=== PATIENT | male | born 1960 | race Caucasian/White ===

== ENCOUNTER 2017-03-29 08:02 | Emergency (ER) | payer MEDICAID ==
--- NOTE | 2017-03-29 08:16 | CPEKG ---
Heart Rate: 104 RR Interval: 577 P-R Interval: 140 QRSD Interval: 106 QT Interval: 352 QTC Interval: 463 P [place]: 50 QRS [place]: 12 T Wave [place]: -24 EKG Severity - ABNORMAL ECG - EKG Impression: SINUS TACHYCARDIA EKG Impression: MULTIFORM VENTRICULAR PREMATURE COMPLEXES Electronically Signed By: Evan Polk 29-Mar-2017 11:36:42
[2017-03-29] MEDS ORDERED: NS 1,000 ML IV ONE (08:21)
--- NOTE | 2017-03-29 08:28 | EDPHY ---
H & P Stated Complaint: Presyncope Time Seen by Provider: 03/29/17 08:13 HPI/ROS: CHIEF COMPLAINT: Presyncope HISTORY OF PRESENT ILLNESS: The patient presents to the ED for any acute exacerbation of chronic presyncope. The patient reportedly has been experiencing these symptoms since January. The patient had been hospitalized at [facility] where he was observed for 24 hours without evidence of arrhythmia. The patient reports workup today has included unremarkable laboratory testing, a-2 day Holter monitor, an unremarkable echocardiogram and a brain MRI which demonstrates no evidence of acute neurologic disease. The patient reportedly is scheduled to undergo additional testing including a tilt- table test and reported evaluation of his adrenal gland. Today the patient developed a more protracted bout of presyncope. The patient reportedly developed bilateral upper extremity paresthesias, shakiness, diaphoresis and general body weakness. The patient denies history of alcohol use. REVIEW OF SYSTEMS: A comprehensive 10 point review of systems is otherwise negative aside from elements mentioned in the history of present illness. Source: Patient, Family - Personal History Current Tetanus/Diphtheria Vaccine: Yes - Medical/Surgical History Hx Asthma: No Hx Chronic Respiratory Disease: No Hx Diabetes: No Hx Cardiac Disease: No Hx Renal Disease: No Hx Cirrhosis: No Hx Alcoholism: No Hx HIV/AIDS: No Hx Splenectomy or Spleen Trauma: No Other PMH: pituitary adenoma/vertigo - Social History Smoking Status: Former smoker - Physical Exam Exam: General Appearance: Alert, no distress Eyes: Pupils equal and round no pallor or injection ENT, Mouth: Mucous membranes moist Respiratory: There are no retractions, lungs are clear to auscultation Cardiovascular: Regular rate and rhythm Gastrointestinal: Abdomen is soft and nontender, no masses, bowel sounds normal Neurological: A&O, normal motor function, normal sensory exam, normal cranial nerves Skin: Warm and dry, no rashes Musculoskeletal: Neck is supple nontender Extremities: symmetrical, full range of motion Constitutional: Initial Vital Signs Temperature (C) 36.7 C 03/29/17 08:04 Heart Rate 102 H 03/29/17 08:04 Respiratory Rate 22 H 03/29/17 08:04 Blood Pressure 161/96 H 03/29/17 08:04 O2 Sat (%) 97 03/29/17 08:04 O2 Delivery Mode Room Air Allergies/Adverse Reactions: No Known Allergies Allergy (Verified 03/29/17 08:04) Home Medications: Medication Instructions Recorded Fluoxetine 20 mg 05/27/15 Sulendac 150 mg 05/27/15 Medical Decision Making - Diagnostics EKG Interpretation: EKG: Complete interpretation has been separately recorded in the [facility] archive. Summary impression: Sinus tachycardia, rate 104, nonspecific ST T wave changes noted Imaging Results: Imaging Impressions Head CTA 03/29/17 09:05 Impression: 1. No acute vascular findings. 2. Degenerative change in the cervical spine. 3. 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 4. Additional findings as above. Stenoses are calculated using [place] Symptomatic Carotid Endarterectomy Trial (NASCET) criteria. Findings discussed with Evan oPlk on March 29, 2017 at 10:47 a.m. Neck CTA 03/29/17 09:05 Impression: 1. No acute vascular findings. 2. Degenerative change in the cervical spine. 3. 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 4. Additional findings as above. Stenoses are calculated using [place] Symptomatic Carotid Endarterectomy Trial (NASCET) criteria. Findings discussed with Evan Polk on March 29, 2017 at 10:47 a.m. ED Course/Re-evaluation: I reviewed the patient's past medical records. I reviewed the results of his pituitary MRI from February. I reviewed the results of his endocrinology consult at the [facility]. The patient has had an unremarkable echocardiogram performed at [facility] according to his . The patient has struggled with intermittent symptoms of presyncope, generalized malaise and balance issues for the past month and a half. In the emergency department, the patient is noted to be neurologically intact. In the ED I expanded the differential diagnosis of his symptoms of vertigo and gait imbalance with a CT angiogram head neck which were negative. The patient' s troponin continues to be normal. The patient continues to have will PVCs noted. The patient has had a nearly 6 week history of intermittent symptoms of presyncope. There has been no obvious arrhythmia noted in the ED aside from PVCs. The patient was monitored here for 3 hours without evidence of a more significant arrhythmia. They plan on following up for more endocrine testing and for consideration of a longer event monitor. I do feel the patient can be discharged home. He is referred to [facility] per their request. Differential Diagnosis: Differential diagnosis considered includes vertebrobasilar insufficiency, vasovagal syncope, arrhythmia, stroke, TIA - Data Points Laboratory Results: 03/29/17 08:30 Troponin I < 0.012 ng/mL ng/mL (0.000-0.034) Medications Given: Discontinued Medications Sodium Chloride (Ns) 1,000 mls @ 0 mls/hr IV EDNOW ONE; Wide Open PRN Reason: Protocol Stop: 03/29/17 08:22 Last Admin: 03/29/17 08:35 Dose: 1,000 mls Departure - Departure Disposition: [facility] Inpatient Acute Clinical Impression: Pre-syncope Condition: Good Instructions: Near Syncope (ED) Additional Instructions: 1. You have been given the contact number of our presiding judge at the hospital for a 2nd opinion. 2. Please return to the ED for markedly worsening symptoms, chest pain, difficulty breathing or other concerns. 3. Your cardiac enzymes are normal and CT angiogram of the head/neck demonstrate no evidence of a dissection or obvious vascular problem. Referrals: Amaya Topete MD [Medical Doctor] - As per Instructions
[2017-03-29] MEDS ORDERED: IOPAMIDOL (ISOVUE 370) 100 ML BTL IV ONE (09:23)
[2017-03-29 11:24] VITALS: BP 123/71; PULSE 96; RESP 18; TEMP 98.4; O2SAT 94
[2017-03-29] MEDS ORDERED: LIDOCAINE 1% 300 MG/30 ML SDV ONE (15:51)
[2017-03-29] MEDS ORDERED: MIDAZOLAM 2 MG/2 ML VIAL ONE ×2 (15:51)
[2017-03-29] MEDS ORDERED: fentaNYL 100 MCG/2 ML INJ ONE (15:51)
[2017-03-29] MEDS ORDERED: IOPAMIDOL (ISOVUE-370) 150 ML BTL IV ONE (15:52)
== END 2017-03-29 11:37 | disposition home or self-care (01) ==
PROC: 3E0337Z Introduction of Electrolytic and Water Balance Substance into Peripheral Vein, Percutaneous Approach (ICD-10-PCS; principal; 2017-03-29)
DX: R55 Syncope and collapse (principal); E86.9 Volume depletion, unspecified; Z87.891 Personal history of nicotine dependence
CPT/HCPCS: J1644; J2250; J3010; Q9967

== ENCOUNTER 2017-03-29 15:42 | Inpatient (IN) | payer MEDICAID ==
[2017-03-29] MEDS ORDERED: FAMOTIDINE 20 MG TAB PO ONE (15:43)
[2017-03-29] MEDS ORDERED: diphenhydrAMINE 25 MG CAP PO ONE ×2 (15:43→15:59)
[2017-03-29] MEDS ORDERED: ASPIRIN EC 325 MG TAB PO ONE ×2 (15:43→16:00)
[2017-03-29] MEDS ORDERED: DIAZEPAM 5 MG TAB PO ONE (15:43)
[2017-03-29] MEDS ORDERED: NS 1,000 ML IV ONE (15:43)
[2017-03-29] MEDS ORDERED: FAMOTIDINE 20 MG TAB ONE (16:00)
[2017-03-29] MEDS ORDERED: DIAZEPAM 5 MG TAB ONE (16:00)
[2017-03-29 16:35] LABS: % IMMATURE GRANULYOCYTES 0.4 % (0.0-1.1); ABSOLUTE IMMATURE GRANULOCYTES 0.04 10^3/uL (0.00-0.10); ADD DIFF? NO; ADD MORPH? NO; ADD SCAN? NO; ATYPICAL LYMPHOCYTE FLAG 10 (0-99); FRAGMENT RBC FLAG 10 (0-99); HEMATOCRIT 44.2 % (40.0-51.0); HEMOGLOBIN 15.5 g/dL (13.7-17.5); LEFT SHIFT FLG 0 (0-99); LIPEMIA HEMOLYSIS FLAG 90 (0-99); MEAN CELL HEMOGLOBIN 30.8 pg (27.9-34.1); MEAN CELL HEMOGLOBIN CONCENTR. 35.1 g/dL (32.4-36.7); MEAN CELL VOLUME 87.9 fL (81.5-99.8); MEAN PLATELET VOLUME 9.7 fL (8.7-11.7); PLATELET CLUMPS FLAG 0 (0-99); PLATELET COUNT 211 10^3/uL (150-400); RED BLOOD CELL COUNT 5.03 10^6/uL (4.40-6.38); RED CELL DISTRIBUTION WIDTH 13.2 % (11.5-15.2)
[2017-03-29 16:43] LABS: INR 1.07 (0.83-1.16); PROTIME(PATIENT) 13.8 SEC (12.0-15.0)
[2017-03-29 16:44] LABS: ANION GAP 14 mEq/L (8-16); CALCIUM 9.7 mg/dL (8.5-10.4); CARBON DIOXIDE 21 mEq/l (22-31); CHLORIDE 107 mEq/L (97-110); CHOLESTEROL 303 mg/dL (140-220); CHOLESTEROL/HDL RATIO 6.31 RATIO (1.00-4.97); CREATININE 0.8 mg/dL (0.7-1.3); GLOMERULAR FILTRATION RATE > 60; GLUCOSE 96 mg/dL (70-100); HIGH DENSITY LIPOPROTEIN 48 mg/dL (40-65); LDL/HDL RATIO 4.98 RATIO (1.00-3.64); LOW DENSITY LIPOPROTEIN 239 mg/dL (80-100); NON-HIGH DENSITY LIPOPROTEIN 255 mg/dL (90-129); POTASSIUM 3.9 mEq/L (3.5-5.2); SODIUM 142 mEq/L (134-144); TRIGLYCERIDE 84 mg/dL (40-150); VERY LOW DENSITY LIPOPROTEINS 16 mg/dL (8-25)
--- NOTE | 2017-03-29 16:51 | PDPROPOC ---
Sedation Plan of Care Sedation Plan of Care: vital signs stable, mental status noted, patient educated of risks, benefits, alternatives, patient can tolerate sedation ASA Classification: ASA 2 Planned drugs: fentanyl, midazolam Mallampati Score: Class 2 Mallampati Reference Image: Patient passed 3-3-2 rule?: Yes
--- NOTE | 2017-03-29 16:51 | PDHPUP ---
History & Physical Update H&P update statement: This history and physical update is based on an assessment of the patient which was completed after admission or registration (within 24 hours), but prior to the surgery/procedure. H&P update: H&P reviewed & patient examined, no change in patient's condition since H&P completed
[2017-03-29] MEDS ORDERED: MIDAZOLAM 2 MG/2 ML VIAL ONE (17:12)
[2017-03-29] MEDS ORDERED: fentaNYL 100 MCG/2 ML INJ ONE (17:15)
[2017-03-29] MEDS ORDERED: ATROPINE SULFATE 1 MG/10 ML SYR IVP PRN (17:40)
[2017-03-29] MEDS ORDERED: ONDANSETRON 4 MG/2 ML VIAL IVP PRN (17:40)
[2017-03-29] MEDS ORDERED: NITROGLYCERIN 0.4 MG BTL SL PRN (17:40)
[2017-03-29] MEDS: SULINDAC 200 MG TAB PO SCH (21:12)
--- NOTE | 2017-03-30 04:22 | CPIP ---
[f rep st] INVASIVE CARDIAC PROCEDURE DATE OF PROCEDURE: 03/29/2017 PROCEDURE: 1. Coronary angiography. 2. Left ventriculography. INDICATION: 1. Syncope. 2. PVCs. ACCESS: Patient was prepped and draped in sterile fashion. 1% lidocaine was used to anesthetize the right inguinal region. A 6-Azeri introducer sheath was placed selectively into the right common fe moral artery via modified Seldinger technique. A 6-Azeri JL 3.5 catheter was advanced to the left m ain coronary artery and images obtained. The left main coronary artery was relatively short and bifu rcated into an LAD and circumflex coronary arteries. The left main coronary artery appeared normal. The left anterior descending coronary artery gave rise to 2 prominent diagonal branches. The left a nterior descending coronary artery had a proximal 20% stenosis present. The remainder of the vessel and its complement of diagonal arteries were normal the circumflex coronary artery is a moderate-size d vessel. The circumflex coronary artery is nondominant. Circumflex coronary artery appeared normal . A 6-Azeri JR4 was advanced to the right coronary artery and images obtained. The right coronary artery was dominant. The right coronary artery appeared normal. LEFT VENTRICULOGRAPHY: A 6-Azeri pigtail catheter was advanced in the left ventricle and images obt ained. Left ventricle is normal size and normal systolic function. Estimated ejection fraction 55%. COMPLICATIONS: None. CONCLUSIONS: 1. Mild coronary artery disease without flow limitation. 2. Normal left ventricular size and systolic function. 3. Plan is for medical management. /[id number]/MODL
[2017-03-30] MEDS: FLUoxetine 20 MG CAP PO SCH (08:58)
[2017-03-30] MEDS: SULINDAC 200 MG TAB PO SCH ×2 (08:59→21:25)
--- NOTE | 2017-03-30 10:06 | ASMTCASEMG ---
Living Arrangements What is your living Answers: With Spouse arrangement? Who do you live with? Type Of Residence What kind of residence do Answers: House you live in? Discharge Plan Comments Coordination Status Comments Notes: Chart reviewed, pt is a 57 y/o man admitted w/ syncope. Pt had a CATH yesterday. Pt will most likely d/c w/ supportive when medically stable. No therapies ordered at this time. CM available for changes. Date Signed: 03/30/2017 10:05 AM Electronically Signed By:ALLISON Beckett
--- NOTE | 2017-03-30 14:03 | SOAPPROG ---
SOR[facility] Progress Note Assessment/Plan: 1. CAD - Pt presented with syncope. Angiogram with mild CAD with out flow limitation. Will start secondary prevention with asa and lipitor. No BB or ENRIKE given symptoms of syncope/pre-syncope and normal BP. 2. Hyperlipidemia - LDL is 239. Will start lipitor 80 mg daily. Pt will likely need repatha as well. FLP and LFTs in 3 months. 3. Syncope - Pt presents with a 1 month history of syncope/pre-syncope. Further work up including holter/telemetry monitoring, echocardiogram, and angiogram are unrevealing. Will consult neurology for possible vertigo. Subjective: Pt with episode of pre-syncope this am. Telemetry monitoring with no significant arrhythmias. BP wnl. No chest pain No orthopnea or PND Objective: Vital Signs Temp Pulse Resp BP Pulse Ox 36.4 C 76 10 L 130/85 H 93 03/30/17 12:00 03/30/17 12:00 03/30/17 12:00 03/30/17 12:00 03/30/17 11:37 Laboratory Results 03/29/17 16:10 03/29/17 16:10 03/29/17 03/30/17 03/31/17 05:59 05:59 05:59 Intake Total 1200 Output Total 450 Balance 750 PT 13.8 SEC (12.0-15.0) 03/29/17 16:10 INR 1.07 (0.83-1.16) 03/29/17 16:10 Physical Exam - Physical Exam General Appearance: alert, mild distress Respiratory: lungs clear Cardiac/Chest: regular rate, rhythm Abdomen: normal bowel sounds, non-tender, soft Extremities: other (No hematoma or echymosis.), No pedal edema Neuro/Psych: alert, oriented x 3 ICD10 Worksheet Patient Problems: Problems Problem Status Onset Syncope Acute - ICD10 Problem Qualifiers (1) Syncope
[2017-03-30] MEDS ORDERED: ACETAMINOPHEN 325 MG TAB PO PRN (14:59)
[2017-03-30] MEDS ORDERED: IOPAMIDOL (ISOVUE 370) 100 ML BTL IV ONE (16:49)
--- NOTE | 2017-03-30 23:47 | GCON ---
[f rep st] CONSULTATION NEUROLOGIC CONSULTATION REFERRING PHYSICIAN: Jaylan Vyas MD CHIEF COMPLAINT: Syncope. BILLING INFORMATION: 70 total minutes floor time today reviewing records, imaging and coordination of care. 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 He was only on generic Prozac and anti- inflammatory medication prior to the beginning of this medical history. The medical history begins around February 19, 2017, when he began feeling lightheaded with a vertiginous feeling, tinnitus, breaking out in a sweat, and paresthesias in all 4 extremities. He lay down on the ground and lifted his legs, which resolved the symptoms, then he went out to dinner. He felt the exact same symptoms as described above, and abruptly had brief syncope for around 5 seconds. He immediately came to and there was no significant postictal confusion. There was no tongue biting. No incontinence. No significant tonic or clonic activity. Since that time, he has had an extensive evaluation both at [facility] and at [facility]. No definitive abnormality has been found. He had a CTA of his head and neck, which showed some normal variants of uncertain clinical significance. Certainly, no significant vascular disease, dissection, or thrombosis. No acute vascular findings. He does have some protrusion of his internal carotid arteries into the sphenoid sinuses, which has been a chronic finding. 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/Neurosurgery. There is some recurrence of the cyst material. He has recently had a repeat MRI and was told by Neurosurgery that it can be observed for the time being and is likely asymptomatic. There are no changes in his medical history prior to the onset of syncope and presyncope on February 19. No change in medications. No trauma. No exposures. He did not change from 1 generic to another in terms of his SSRI. Interestingly, he did drop off his son at [place] and drive [place] back home 2 days before these symptoms started and may have had a little left calf pain, which has now resolved. He did feel "icky" according to his and was in bed for a couple days, and the day he felt better, which was February 19, is when these symptoms started. He does feel a little shortness of breath here and there, but he thinks that is more related to anxiety. PAST MEDICAL HISTORY: Depression, anxiety. HOME MEDICATIONS: Prozac and an antiinflammatory. ALLERGIES: No known drug allergies. 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 FAMILY HISTORY: No inheritable neurologic disease. PHYSICAL EXAMINATION: VITAL SIGNS: The patient had orthostatics done in my presence. While supine, he had a blood pressure of 144/80, with a heart rate in the 90s, and when standing it actually nadine to 167/106, again heart rate in the 90s. No symptoms. GENERAL: No acute distress. NEUROLOGIC: Higher mental function: Awake, alert, lucid. No aphasia. Cranial nerve exam normal 2 through 7, 11 and 12. Motor: Normal strength and tone throughout. Sensory: Normal to light touch throughout. Coordination normal in upper and lower extremities. IMPRESSION/PLAN: 1. Syncope and presyncope. The patient's fairly abrupt onset of syncope and presyncope is unusual. There is no obvious cause at this point or reliable triggers to suggest new onset vasovagal syncope. Based on his age of 57, new onset vasovagal syncope in itself would be unusual. He has a multitude of triggers including activity, stress, bright lights, etcetera. He denies any clear-cut orthostatic symptoms, and he had an event recorded on electrocardiogram without dysrhythmia. The initial event apparently was accompanied by a heart rate in the 30s in the ambulance and a feeling of needing to defecate, suggesting possible vasovagal etiology for the very 1st episode. I recommend going forward we will check a CT angiography of the chest with contrast and bilateral lower extremity ultrasound to exclude any venous thrombosis in the legs to cause his symptoms. If this is negative, he will likely discharge home with increased fluid, dietary sodium, and compression stockings for the time being. He will follow up with [facility] to begin with. We discussed a differential diagnosis of endocrine symptoms, such as carcinoid as a cause, central nervous system causes perhaps related to his residual Rathke cyst, post viral syndrome with autonomic neuropathy was discussed. However, there is no viral illness antecedent in this history. He has had a full cardiac workup here including cardiac catheterization with no significant obstructive disease. If there is no evidence of venous thrombosis, he will likely discharge if cleared by cardiology and with close outpatient followup. He will return to the ED for any new or recurrent symptoms. Thank you for this consultation. /[id number]/MODL MTDD
[2017-03-31] MEDS: FLUoxetine 20 MG CAP PO SCH (08:14)
[2017-03-31] MEDS: SULINDAC 200 MG TAB PO SCH ×2 (08:14→20:57)
--- NOTE | 2017-03-31 12:13 | NEUROPROG ---
Assessment: 1. History of syncope and presyncopal symptoms The patient's CT angiography of the chest showed no pulmonary embolism. Lower extremity Doppler showed no DVT When I saw the patient this morning he had become symptomatic again with a feeling of tachycardia," feeling shaky", generalized malaise and flushed / diaphoretic. He had no convulsive activity or alternation of consciousness whatsoever. The symptoms that were occurring in my presence were not suggestive or consistent with a seizure. We discussed again the differential diagnosis including endocrine tumors. Biochemical labs are pending. I understand the Cardiology has requested that Hospital Medicine also review his case. He does have some outpatient plans as well. No further recommendations now. Continue to follow up p.r.n. Please do not hesitate to call with any questions or changes in neurologic status with this very pleasant patient. Subjective: Symptoms were recurring this morning around 9:00 a.m. Objective: Vital Signs Temp Pulse Resp BP Pulse Ox 36.6 C 73 14 141/90 H 92 03/31/17 11:50 03/31/17 11:50 03/31/17 11:50 03/31/17 11:50 03/31/17 11:50 Laboratory Results 03/29/17 16:10 03/29/17 16:10 03/30/17 03/31/17 04/01/17 05:59 05:59 05:59 Intake Total 1200 1850 Output Total 450 900 Balance 750 950 PT 13.8 SEC (12.0-15.0) 03/29/17 16:10 INR 1.07 (0.83-1.16) 03/29/17 16:10 Awake alert. No alteration of consciousness No aphasia No focal weakness No sensory deficits No ataxia Essentially normal exam 35 total minutes floor time; this included in direct counseling with the patient , review of EHR results and in coordination of care with Cardiology. Allergies/Adverse Reactions: No Known Allergies Allergy (Verified 03/29/17 08:04)
[2017-03-31] MEDS: LORazepam 0.5 MG TAB PO PRN ×2 (12:33→19:14)
[2017-03-31] MEDS ORDERED: IOPAMIDOL (ISOVUE-300) 100 ML BTL ONE (15:06)
[2017-03-31 15:21] LABS: COLOR YELLOW; LEUKOCYTE ESTERASE,URINE NEGATIVE (NEGATIVE); NITRITE,URINE NEGATIVE (NEGATIVE)
--- NOTE | 2017-03-31 15:30 | SOAPPROG ---
SOR[facility] Progress Note Assessment/Plan: 1. CAD - Pt presented with syncope. Angiogram with mild CAD with out flow limitation. Will start secondary prevention with asa. No BB or ENRIKE given symptoms of syncope/pre-syncope and normal BP. Will start lipitor as noted below once acute issues resolve. 2. Hyperlipidemia - LDL is 239. Will start lipitor 80 mg daily when acute issues resolve. Pt will likely need repatha as well. FLP and LFTs in 3 months. 3. Syncope - Pt presents with a 1 month history of syncope/pre-syncope. Further work up including holter/telemetry monitoring, echocardiogram, and angiogram are unrevealing. No obvious secondary causes identified by neurology. Will consult medicine to look for potential endocrine causes as he continues to have symptoms. Subjective: Pt with another episode of flushing and pre-syncope this am. BP and telemetry wnl at the time No chest pain No orthopnea or PND No groin complications. Objective: Vital Signs Temp Pulse Resp BP Pulse Ox 36.6 C 73 14 141/90 H 92 03/31/17 11:50 03/31/17 11:50 03/31/17 11:50 03/31/17 11:50 03/31/17 11:50 Laboratory Results 03/29/17 16:10 03/29/17 16:10 03/30/17 03/31/17 04/01/17 05:59 05:59 05:59 Intake Total 1200 1850 Output Total 450 900 Balance 750 950 PT 13.8 SEC (12.0-15.0) 03/29/17 16:10 INR 1.07 (0.83-1.16) 03/29/17 16:10 Physical Exam - Physical Exam General Appearance: alert, mild distress Respiratory: lungs clear Cardiac/Chest: regular rate, rhythm Skin: other (flushed) Neuro/Psych: alert, oriented x 3 ICD10 Worksheet Patient Problems: Problems Problem Status Onset Syncope Acute - ICD10 Problem Qualifiers (1) Syncope
--- NOTE | 2017-03-31 15:31 | GCON ---
[f rep st] CONSULTATION INTERNAL MEDICINE CONSULTATION DATE OF CONSULTATION: 03/31/2017 REASON FOR CONSULTATION: Medical opinion regarding etiology of severe flushing episodes. REQUESTING PHYSICIANS: Jaylan Vyas MD. HISTORY: The patient is a 57-year-old male who is been having flushing episodes for a little over a month. The first time he had these episodes, they were associated with a syncopal event that occurre d while he was out for dinner. He was sitting up in a chair and suddenly went down hitting the floor . 911 was called. On route, his heart rate was 30 and it seemed to be vagal. He was admitted to [facility]. Had some workup there including an MRI of the brain with focus on his pituitary g land, given the fact he previously had a resection of a pituitary tumor. They also did a pituitary h ormonal workup that was unremarkable. Since that initial episode, he has continued to have these epi sodes of severe flushing multiple times throughout the day and they have become completely debilitati ng and he does not get out of bed. He describes them as vertigo, however, [id number] rather than [id number], lightheadedness, diaphoretic paresthesias, tinnitus with presyncope. He feels lighthea ded all the time. These episodes have been witnessed by Dr. Vyas here in the hospital and he turns beet red with extreme flushing and diaphoresis. These episodes last up to an hour. He has a feelin g of doom, despair and fear during the episodes, although he does admit that the physical symptoms pr eceded this anxiety that he now feels regarding the uncomfortableness in anticipation of having anoth er episode. He has had nausea and low appetite, but no diarrhea, no abdominal pain. He has had nigh t sweats. These episodes occurred here as an inpatient while he was on geographical historian, which cont inued to reveal a completely normal sinus rhythm, so rules out arrhythmia or need for pacemaker. His vital signs were also extremely stable during the event. Dr. Mane Barry also saw him in consultatio n, did not see any neurologic cause for these episodes. PAST MEDICAL HISTORY: 1. Rathke cyst of the pituitary, status post transsphenoidal surgery for resection. 2. Depression and anxiety. MEDICATIONS: Please see computer record for full detailed list. ALLERGIES: No known drug allergies. SOCIAL HISTORY: No smoking. No alcohol. He lives with his . 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 REVIEW OF SYSTEMS: Complete review of systems obtained. Review of systems is negative on constituti onal, HEENT, GI, pulmonary, cardiovascular, , hematology, skin, muscular, endocrine, psych except f or positives and negatives as in HPI. FAMILY HISTORY: Reviewed and noncontributory to presenting complaints. PHYSICAL EXAMINATION: GENERAL: Well-developed, well-nourished male, in no distress. VITAL SIGNS: Temperature 36.5, pulse 86, blood pressure 146/80, saturating 94% on room air. EYES: Normal conjunc tivae, pupils react to light. ENT: Normal ears, nose and hearing intact. Normal teeth. Oropharynx moist. NECK: Trachea midline. No thyromegaly. CHEST: Normal effort. LUNGS: Clear to auscultatio n bilaterally. CARDIOVASCULAR: Regular rhythm. No murmur. No extremity edema. ABDOMEN: Soft, no ntender. No hepatosplenomegaly. SKIN: Warm, dry, intact. No rash. MUSCULOSKELETAL: No cyanosis or clubbing. Strength 5/5 upper and lower extremities. NEUROLOGIC: Cranial nerves intact, normal s ensation to light touch. PSYCH: Alert and oriented x3. Normal affect. Normal judgment. Normal me mariusz. LABORATORY DATA: White count 9.8, hematocrit 44.2, platelets 211, sodium 142, potassium 3.9, chlorid e 107, bicarb 21, BUN 14, creatinine 0.8, glucose 96, LDL is 239. A.m. cortisol was 4.4. A CT angiogram of chest was negative for PE. Bilateral lower extremity ultrasounds were negative for DVT. Medical records review: The provided records from [facility] which I personally review ed. MRI of the pituitary gland was mostly unremarkable, except for a slightly enlarging and recurrin g Rathke's cyst in his pituitary gland. The remainder of his brain MRI was negative although this wa s a dedicated pituitary scan. Laboratory studies from [facility] were quite complete regarding workup for panhypopituitari sm, except for his cortisol was only 10. ASSESSMENT/PLAN: 1. Severe flushing episodes. He is now having them daily for the last month and they are quite tico litating. Episodes witnessed here by Dr. Vyas are found to be very dramatic. During the episode, hi s telemetry was negative and his vital signs were stable and Dr. Vyas feels there is no cardiac prudencio ology. Similarly, Dr. Mane Barry from Neurology has already seen him in consultation and has ruled o ut neurologic cause as well. I think the next step is to do a hormonal evaluation to rule out etiolo gies such as pheochromocytoma, carcinoid syndrome, mastocytosis. Will check a 24 hour urine for meta nephrines and catecholamines, 5-IHAA and histamine. We will recheck some of his hypopituitary labs a s this syndrome has progressed dramatically since they were initially done. Will send off TSH, free T4, ACTH, testosterone and luteinizing hormone. Given many of these diagnoses are related to a tumor in the abdomen as the source, will check a CT scan of the abdomen and pelvis. Will check a glucose during his next episode as this has not been done. We will check a Enmanuel stim test in the morning. 2. Hyperlipidemia. Will recommend starting statin as an outpatient. I do not want to confuse his c urrent symptom presentation. 3. Recurrent Rathke cyst on the pituitary. Recently evaluated by Dr. Barber at [facility]. The patient was told although it is enlarging, it is felt to be asymptomatic at this time and no further surgery is needed. 4. Syncope. He has daily presyncope, but only 1 tanya syncopal episode. Echo in telemetry are unre markable. He did have some positive orthostatics here in the hospital. Will continue to follow thes e and consider further hydration. I thank you very much for this consultation. Internal Medicine will continue to follow along while h e remains hospitalized. /[id number]/MODL
[2017-04-01] MEDS ORDERED: COSYNTROPIN 0.25 MG/2 ML SYRINGE IVP ONE (06:00)
[2017-04-01 06:32] LABS: HEMATOCRIT 44.1 % (40.0-51.0)
[2017-04-01 07:03] LABS: ALBUMIN 4.3 g/dL (3.5-5.0); BILIRUBIN,TOTAL 0.8 mg/dL (0.1-1.4); BILIRUBIN-CONJUGATED 0.3 mg/dL (0.0-0.5); BILIRUBIN-UNCONJUGATED 0.5 mg/dL (0.0-1.1); TOTAL PROTEIN 7.4 g/dL (6.3-8.2)
[2017-04-01 07:18] LABS: LUTEINIZING HORMONE 3.65 mIU/mL (NOT ESTABLSHD)
[2017-04-01] MEDS: LORazepam 0.5 MG TAB PO PRN ×2 (08:35→19:04)
[2017-04-01] MEDS ORDERED: ENOXAPARIN 40 MG/0.4 ML SYR SC SCH (09:00)
[2017-04-01] MEDS: SULINDAC 200 MG TAB PO SCH ×2 (12:36→21:19)
[2017-04-01] MEDS: FLUoxetine 20 MG CAP PO SCH ×2 (12:36→12:38)
--- NOTE | 2017-04-01 15:48 | PDCARPN ---
Cardiology Progress Note Assessment/Plan: Assessment: 1. CAD - Pt presented with syncope. Angiogram with mild CAD with out flow limitation. Will start secondary prevention with asa. No BB or ENRIKE given symptoms of syncope/pre-syncope and normal BP. Will start lipitor as noted below once acute issues resolve. 2. Hyperlipidemia - LDL is 239. Will start lipitor 80 mg daily when acute issues resolve. Pt will likely need repatha as well. FLP and LFTs in 3 months. 3. Syncope - Pt presents with a 1 month history of syncope/pre-syncope. Further work up including holter/telemetry monitoring, echocardiogram, and angiogram are unrevealing. No obvious secondary causes identified by neurology. Hospitalist consulted to look for potential endocrine causes as he continues to have symptoms. Subjective: Pt with another episode of flushing and pre-syncope this am. BP and telemetry wnl at the time 04/01/17 15:45 Objective: Vital Signs (8 Hrs) Temp Pulse Resp BP Pulse Ox 04/01/17 15:17 37.2 C 92 18 118/87 H 92 04/01/17 12:00 85 16 133/84 H 93 Intake/Output (24 Hrs) 03/31/17 04/01/17 04/02/17 05:59 05:59 05:59 Intake Total 1850 1900 1360 Output Total 900 700 Balance 950 1200 1360 Intake: Oral (ml) 1850 1900 1360 Output: Urine (ml) 900 700 Toilet 900 700 Other: Intake Quantity Yes Yes Sufficient Number of Voids Toilet 1 2 Result Diagrams: 04/01/17 06:14 03/29/17 16:10 ICD10 Worksheet Patient Problems: Problems Problem Status Onset Syncope Acute
--- NOTE | 2017-04-01 16:18 | HOSPPROG ---
Hospitalist Progress Note Assessment/Plan: * Recurrent severe flushing episodes - persistent for 1 month -extensive work-up pending, including 24 hour urine -no evidence for abdominal tumor * Vertigo -check MRI brain with cuts through auditory canal * Anxiety -feels better on ativan, but does not desire to use it chronically -try hydroxyzine * Syncope -per cardiology - cardiac etiology ruled out -ECHO, cardiac cath negative -witness spells while inpatient with completely normal tele * Recurrent pituitary cyst - enlarging on most recent MRI at [place] -panhypopit endocrine work-up negative -no further intervention needed at this time per [employer] -likely not contributing to current episodes * Hyperlipidemia -start statin as outpatient so it doesn't cloud picture Subjective: Has had no spells in last 24 hours, only multiple times where he felt like he almost had one Objective: Vital Signs Temp Pulse Resp BP Pulse Ox 37.2 C 92 18 118/87 H 92 04/01/17 15:17 04/01/17 15:17 04/01/17 15:17 04/01/17 15:17 04/01/17 15:17 Laboratory Results 04/01/17 06:14 03/29/17 16:10 03/31/17 04/01/17 04/02/17 05:59 05:59 05:59 Intake Total 1850 1900 1360 Output Total 900 700 Balance 950 1200 1360 PT 13.8 SEC (12.0-15.0) 03/29/17 16:10 INR 1.07 (0.83-1.16) 03/29/17 16:10 MRI from [facility] discussed with Dr. Tobar - there were only limited cuts through brain on pituitary MRI - could possibly miss something in brain CT abd/pelvis - negative - Time Spent With Patient Time Spent with Patient: greater than 35 minutes Time Spent with Patient: Greater than 35 minutes spent on this patients care, greater than 50% of time spent counseling, educating, and coordinating care regarding the above mentioned plan. - Physical Exam Constitutional: no apparent distress, appears nourished, not in pain Cardiovascular: regular rate and rhythym, no murmur, rub, or gallop Respiratory: no respiratory distress, no rales or rhonchi, clear to auscultation Gastrointestinal: normoactive bowel sounds, soft, non-tender abdomen, no palpable masses Skin: no rashes or abrasions, no fluctuance, no induration Neurologic: AAOx3, sensation intact bilaterally Psychiatric: interacting appropriately, not anxious, not encephalopathic, thought process linear ICD10 Worksheet Patient Problems: Problems Problem Status Onset Syncope Acute
[2017-04-01] MEDS ORDERED: GADOBUTROL 10 ML VIAL IVP ONE (18:54)
[2017-04-01] MEDS: hydrOXYzine HCL 25 MG TAB PO PRN (19:02)
[2017-04-02 03:48] VITALS: O2SAT 93
[2017-04-02 05:22] LABS: % IMMATURE GRANULYOCYTES 0.5 % (0.0-1.1); ABSOLUTE IMMATURE GRANULOCYTES 0.04 10^3/uL (0.00-0.10); ADD DIFF? NO; ADD MORPH? NO; ADD SCAN? NO; ATYPICAL LYMPHOCYTE FLAG 0 (0-99); FRAGMENT RBC FLAG 0 (0-99); HEMATOCRIT 44.1 % (40.0-51.0); LEFT SHIFT FLG 0 (0-99); LIPEMIA HEMOLYSIS FLAG 90 (0-99); MEAN CELL HEMOGLOBIN 30.4 pg (27.9-34.1); MEAN CELL VOLUME 89.5 fL (81.5-99.8); MEAN PLATELET VOLUME 10.1 fL (8.7-11.7); PLATELET CLUMPS FLAG 0 (0-99); PLATELET COUNT 175 10^3/uL (150-400); RED BLOOD CELL COUNT 4.93 10^6/uL (4.40-6.38); RED CELL DISTRIBUTION WIDTH 13.2 % (11.5-15.2)
[2017-04-02 05:45] LABS: ANION GAP 14 mEq/L (8-16); CALCIUM 9.5 mg/dL (8.5-10.4); CARBON DIOXIDE 23 mEq/l (22-31); CHLORIDE 103 mEq/L (97-110); GLOMERULAR FILTRATION RATE > 60; GLUCOSE 86 mg/dL (70-100); POTASSIUM 4.2 mEq/L (3.5-5.2); SODIUM 140 mEq/L (134-144)
[2017-04-02] MEDS: FLUoxetine 20 MG CAP PO SCH (08:38)
[2017-04-02] MEDS: SULINDAC 200 MG TAB PO SCH (08:38)
[2017-04-02 08:46] LABS: METANEPHRINES PLASMA METAP <0.20 nmol/L (<0.50); NORMETANEPHRINE PLASMA METAP 0.33 nmol/L (<0.90)
[2017-04-02] MEDS: hydrOXYzine HCL 25 MG TAB PO PRN (08:55)
[2017-04-02 10:16] VITALS: TEMP 97.8
--- NOTE | 2017-04-02 10:41 | HOSPPROG ---
Hospitalist Progress Note Assessment/Plan: # flushing/vertigo/syncope - full workup pending - no neuro/cardiac etiologies identified - MRI brain negative - no tumors seen on CT - tele normal during episodes - echo/cath normal # anxiety - # recurrent pituitary cyst - endo w/u negative - follows at [facility] - doubt this is part of current presentation # HLD -start statin as outpatient so it doesn't cloud picture ok for dc from IM perspective - will need to follow up on all pending labs with PCP. patient aware of this. he will not drive, swim, climb ladders, etc until this resolves. Subjective: ongoing flushing episodes Objective: Vital Signs Temp Pulse Resp BP Pulse Ox 36.6 C 83 17 131/83 H 93 04/02/17 08:00 04/02/17 08:00 04/02/17 08:00 04/02/17 08:00 04/02/17 08:00 Laboratory Results 04/02/17 03:46 04/02/17 03:46 04/01/17 04/02/17 04/03/17 05:59 05:59 05:59 Intake Total 1900 2160 Output Total 700 Balance 1200 2160 PT 13.8 SEC (12.0-15.0) 03/29/17 16:10 INR 1.07 (0.83-1.16) 03/29/17 16:10 chart reviewed US/MRI/CTs reviewed cath note reviewed - Physical Exam Constitutional: no apparent distress, appears nourished, other (mild facial erythema) Cardiovascular: regular rate and rhythym, no murmur, rub, or gallop Respiratory: no respiratory distress, no rales or rhonchi, clear to auscultation Gastrointestinal: normoactive bowel sounds, soft, non-tender abdomen, no palpable masses ICD10 Worksheet Patient Problems: Problems Problem Status Onset Syncope Acute
[2017-04-02 11:09] VITALS: BP 131/81; PULSE 82; RESP 20
--- NOTE | 2017-04-02 14:36 | ASDISCHSUM ---
Discharge Information Plan Status:Home with No Needs Medically Cleared to Leave:04/02/2017 Discharge Date:04/02/2017 01:15 PM CM D/C Disposition:Home, Routine, Self-Care ADT D/C Disposition:Home, Routine, Self-Care Projected Discharge Date:03/30/2017 12:00 AM Transportation at D/C:Family Discharge Delay Reason: Follow-Up Date:03/30/2017 12:00 AM Discharge Slot:2 - 12:01 pm - 18:00 pm Final Diagnosis:Flushing, vertigo, syncope Placement Information Patient Contact Information Contact Name:KATRINA Relationship: Address:[address] [place] [address] City:[place] Alternate Phone: [facility]/Zip Code:[place] [address] Email: Financial Information Financial Class: Primary Plan Desc:[employer] [place] Primary Plan Number:[id number] Secondary Plan Desc: Secondary Plan Number: Assessment Information [facility] Initial CM Assessment Living Arrangements What is your living Answers: With Spouse arrangement? Who do you live with? Type Of Residence What kind of residence do Answers: House you live in? Discharge Plan Comments Coordination Status Comments Notes: Chart reviewed, pt is a 57 y/o man admitted w/ syncope. Pt had a CATH yesterday. Pt will most likely d/c w/ supportive when medically stable. No therapies ordered at this time. CM available for changes. Date Signed: 03/30/2017 10:05 AM Electronically Signed By:ALLISON Beckett [facility] CM Progress Note CM Note CM Note Notes: Reviewed chart re: d/c poc, pt's progress. Pt to discharge home independently w/ family support and no identified needs. Pt to f/u w/ his PCP and [facility] as directed. No IM signed, not applicable. CM avail for any further issues or concerns. Date Signed: 04/02/2017 02:35 PM Electronically Signed By:Zaria Burroughs RN Intervention Information
[2017-04-04 01:26] LABS: HEMOGLOBIN A1C 5.2 % (4.0-6.0)
[2017-04-04 09:21] LABS: CALCITONIN <5.0 pg/mL (<=14.3)
[2017-04-04 09:37] LABS: ANTI EBNA Positive (Negative); ANTI VCA/IgG Positive (Negative); ANTI VCA/IgM Negative (Negative)
[2017-04-04 09:54] LABS: ADRENOCORTICOTROPIC HORMONE 42 pg/mL
[2017-04-04 11:50] LABS: LYME ANTIBODY Negative (Negative)
[2017-04-04 22:23] LABS: CMVRU RESULT Negative (Negative); CMVRU SPECIMEN SOURCE URINE
[2017-04-05 06:50] LABS: 5-HYDROXYINDOLEACETIC ACID UR 6.8 mg/24 h (<=8.0)
[2017-04-07 11:48] LABS: VASO INTESTINAL POLYPEPTIDE <50 pg/mL (<75)
== END 2017-04-02 13:15 | disposition home or self-care (01) | DRG 287 ==
LOC: FCATH 15:42 → F2W 17:40 → OBSVTOIN 03-30 17:15
PROVIDERS: ADMIT Internal Medicine Cardiovascular Disease; ATTEND Internal Medicine Cardiovascular Disease
PROC: B2151ZZ Fluoroscopy of Left Heart using Low Osmolar Contrast (ICD-10-PCS; principal; 2017-03-29)
PROC: B2111ZZ Fluoroscopy of Multiple Coronary Arteries using Low Osmolar Contrast (ICD-10-PCS; principal; 2017-03-29)
PROC: 4A023N7 Measurement of Cardiac Sampling and Pressure, Left Heart, Percutaneous Approach (ICD-10-PCS; principal; 2017-03-29)
DX: R55 Syncope and collapse (principal); I25.10 Atherosclerotic heart disease of native coronary artery without angina pectoris; E78.5 Hyperlipidemia, unspecified; R23.2 Flushing; I49.3 Ventricular premature depolarization; E23.6 Other disorders of pituitary gland; F41.8 Other specified anxiety disorders
CPT/HCPCS: 82024-90; 82308-90; 82384-90; 83497-90; 83520-90; 83835-90; 84260-90; 84586-90; 86618-90; 86664-90; 86665-90; 87496-90; A9585; C1760; J0834; J1644; J1650; J2250; J3010; Q9967

== ENCOUNTER → 2017-04-30 | Outpatient (CLI) | payer MEDICAID | LOC: SBRMNEURO 20:00 | PROVIDERS: ATTEND Psychiatry & Neurology Sleep Medicine | DX: G47.33 Obstructive sleep apnea (adult) (pediatric) (principal); G47.39 Other sleep apnea ==